=== PATIENT | female | born 1975 | race Asian ===

== ENCOUNTER 2023-12-11 16:00 | Emergency (ER) | payer OTHER, SELFPAY ==
[2023-12-11 16:20] VITALS: BP 164/116; PULSE 70; RESP 18; TEMP 36.1; O2SAT 98; BMI 22.6
--- NOTE | 2023-12-11 18:47 | ED_ITS ---
HPI - Eye Problem General Chief complaint: Eye Problems Stated complaint: allergies, hemorrage in lt eye Time Seen by Provider: 12/11/23 18:15 Source: patient Mode of arrival: Ambulatory History of Present Illness HPI Narrative: 48-year-old female presents for bilateral eye irritation, watering, itchiness. Patient states that she has allergies but never this severe before. Has been using [id number] anti redness eye drops without relief. Denies changes in vision, eye pain, photophobia Related Data Previous Rx's Medication Instructions Recorded nedocromil 2 % eye drops 2 drp EYE-BOTH Q12H #5 mL 12/11/23 Allergies Allergy/AdvReac Type Severity Reaction Status Date / Time No Known Drug Allergies Allergy Verified 12/11/23 19:11 Review of Systems Review of Systems Narrative: Negative except as noted above Patient History Social History Smoking Status: Never smoker Smoking Status: Never smoker Substance Use Type: does not use Exam Initial Vital Signs Initial Vital Signs: Vital Signs Temperature 97 F L 12/11/23 16:20 Pulse Rate 70 12/11/23 16:20 Respiratory Rate 18 12/11/23 16:20 Blood Pressure 164/116 H 12/11/23 16:20 Pulse Oximetry 98 12/11/23 16:20 Oxygen Delivery Method Room Air 12/11/23 16:20 Const: Awake, alert, no acute distress, nontoxic appearing Eye: severe conjunctival injection/erythema, EOMI, PERRL, no fluoresceine uptake, IOP right 22mmHg, IOP left 19 mmHg Skin: Warm, Dry, intact, no rashes Neuro: AO x3, CN II-XII grossly intact, moves all extremities Course Orders Ordered: Discontinued Medications Dexamethasone (Dexamethasone 10 Mg/Ml Vial) 10 mg PO NOW ONE Stop: 12/11/23 18:48 Last Admin: 12/11/23 19:02 Dose: 10 mg Documented By: WALLY Diphenhydramine HCl (Diphenhydramine 25 Mg Tablet) 50 mg PO NOW ONE Stop: 12/11/23 18:48 Last Admin: 12/11/23 19:03 Dose: 50 mg Documented By: WALLY Famotidine (Famotidine 20 Mg Tablet) 20 mg PO BID ROSE Famotidine (Famotidine 20 Mg Tablet) 20 mg PO NOW ONE Stop: 12/11/23 19:11 Last Admin: 12/11/23 19:15 Dose: 20 mg Documented By: RB Fluorescein Sodium (Fluorescein 1 Mg Strip) 1 mg EYE-BOTH NOW ONE Stop: 12/11/23 18:46 Last Admin: 12/11/23 19:03 Dose: 1 mg Documented By: WALLY Proparacaine HCl (Proparacaine 0.5% Ophth [place]) 1 drops EYE-BOTH NOW ONE Stop: 12/11/23 18:46 Last Admin: 12/11/23 19:02 Dose: 1 drop Documented By: WALLY Vital Signs Vital signs: Vital Signs - 8 hr 12/11/23 19:40 Pulse Rate 77 Respiratory Rate 16 Blood Pressure 178/107 H Pulse Oximetry 99 Oxygen Delivery Method Room Air MDM - Eye Problem Differential Diagnosis Differential diagnosis: Likely corneal abrasion, conjunctivitis and acute iritis MDM Narrative Medical decision making narrative: Otherwise well-appearing patient with what appears to be severe allergic conjunctivitis. Vision is intact, there was no fluorescein uptake to indicate abrasion or ulceration, IOP is within normal limits. Patient advised to start t aking a daily anti allergy medication and a mass cell stabilizing drop prescription was sent to pharmacy of choice. Ophthalmology follow up strongly advised. Discharge Plan Departure Patient Disposition: Home Clinical Impression: Acute allergic conjunctivitis of both eyes Instructions: DI for Conjunctivitis Activity Restrictions/Additional Instructions: Take a daily anti allergy medication such as Claritin or Zyrtec. I highly recommend following up with an eye doctor, especially if you continue to experience symptoms. Avoid scratching or rubbing your eyes as much as possible. Prescriptions: New nedocromil 2 % drops 2 drp EYE-BOTH Q12H Qty: 5 0RF Referrals: Miscellaneous,Doctor[facility] [Primary Care Provider] - Stand Alone Forms: Patient Portal/API
[2023-12-11] MEDS: DEXAMETHASONE 10 MG/ML VIAL PO (19:02)
[2023-12-11] MEDS: PROPARACAINE 0.5% OPHTH SOL 1 DROPS EYE-BOTH (19:02)
[2023-12-11] MEDS: diphenhydrAMINE 25 MG TABLET 50 MG PO (19:03)
[2023-12-11] MEDS: FLUORESCEIN 1 MG STRIP EYE-BOTH (19:03)
[2023-12-11] MEDS: FAMOTIDINE 20 MG TABLET PO (19:15)
[2023-12-11 19:40] VITALS: BP 178/107; PULSE 77; RESP 16; O2SAT 99
== END 2023-12-11 19:45 | disposition home or self-care (01) ==
PROVIDERS: Emergency Provider Emergency Medicine
DX: H10.13 Acute atopic conjunctivitis, bilateral (principal)
CPT/HCPCS: 99283; A9270; J1100